=== PATIENT | female | born 1975 | race Caucasian/White ===

== ENCOUNTER 2020-11-15 14:32 | Outpatient (CLI) | payer OTHER, SELFPAY ==
--- NOTE | ~2020-11-15 | MM_ITS ---
EXAMINATION: MM screening elizabeth BI w chay HISTORY: Screening TECHNIQUE: Craniocaudal and mediolateral oblique 3-D tomosynthesis images were obtained and synthetic 2-D images were generated. CAD analysis was submitted and interpreted. COMPARISON: No prior mammogram is available for comparison at this institution. BREAST PARENCHYMAL COMPOSITION: FINDINGS: There is no evidence of suspicious mass, calcification, or architectural distortion to sugg est malignancy in either breast. There has been no suspicious interval change. IMPRESSION: 1. No mammographic evidence of malignancy. 2. Recommend routine screening mammography in one year. Reviewed, dictated and finalized at location A. ESTATE OPERATIONS MANAGER
== END 2020-11-15 14:33 | disposition home or self-care (01) ==
LOC: ANHIMG 14:37
PROVIDERS: PCP Obstetrics & Gynecology; Visit Provider Obstetrics & Gynecology
DX: Z12.31 Encounter for screening mammogram for malignant neoplasm of breast (principal)
CPT/HCPCS: 77063; 77067

== ENCOUNTER 2022-11-14 17:29 | Emergency (ER) | payer OTHER, SELFPAY ==
[2022-11-14] VITALS (12 sets, daily range): BP systolic 103–167; BP diastolic 44–143; PULSE 99–220; RESP 16–27; TEMP 36.4; O2SAT 99–100
--- NOTE | 2022-11-14 17:31 | ECG_ITS ---
Measurements Intervals [place] Rate: 189 P: NE: 0 QRS: 0 QRSD: 88 T: 60 QT: 232 QTc: 412 Interpretive Statements SUPRAVENTRICULAR TACHYCARDIA LEFT VENTRICULAR HYPERTROPHY AND ST-T CHANGE BORDERLINE ST-T WAVE ABNORMALITY- ANTEROLATERAL LEADS BASELINE ARTIFACT- III, V1, V3 ABNORMAL ECG NO PREVIOUS ECG AVAILABLE FOR COMPARISON Electronically Signed On 11-14-2022 18:26:48 MAINFRAME SYSTEMS ENGINEER by Robb Horta D.O.
--- NOTE | 2022-11-14 17:48 | PC.NURSE ---
1731-Pt arrived to room, HR 200, vasovagal maneuver attempted x2 with no change in HR. 1744- Dr. Aditi Quinn at bedside adenosine 6mg given rapid IVP, no change in HR, remaining 200s. 1746- adenosine 12mg rapid IVP, HR decreased to 120 and Sinus tachycardia.
--- NOTE | 2022-11-14 17:53 | ECG_ITS ---
Measurements Intervals [place] Rate: 120 P: 63 FL: 167 QRS: -1 QRSD: 94 T: 75 QT: 292 QTc: 412 Interpretive Statements SINUS TACHYCARDIA LEFT VENTRICULAR HYPERTROPHY AND ST-T CHANGE BASELINE ARTIFACT- I, II, III, AVR, AVL, AVF, V1-V2 ABNORMAL ECG COMPARED TO ECG 11/14/2022 17:41:40 SINUS TACHYCARDIA NOW PRESENT Electronically Signed On 11-14-2022 18:27:21 CEILING CLEANER by Robb Horta D.O.
[2022-11-14] MEDS: ADENOSINE IV SOLN 6 MG/2 ML VIAL 18 MG (17:56)
[2022-11-14] MEDS: SODIUM CHLORIDE 0.9% IV 1,000 ML 999 ML (17:57)
--- NOTE | 2022-11-14 18:18 | ED.GENADULT ---
HPI - General Adult General Chief complaint: Arrhythmia/Palpitations Stated complaint: palpitations Time Seen by Provider: 11/14/22 17:34 History of Present Illness HPI narrative: Old female with history of paroxysmal SVT presenting to the emergency department for evaluation of rapid heart rate since approximately 330 today. Patient states she was bringing in her Hands when she felt her rapid heart rate. Patient states he did feel lightheaded with this but denied any associated chest pain. Patient states she has had follow-up with cardiology for this previously but has never had a Holter monitor. Patient is being worked up for hyperthyroid. Patient states he did have some caffeine today but denies any significant change in her caffeine intake from baseline. Related Data Allergies Allergy/AdvReac Type Severity Reaction Status Date / Time erythromycin base AdvReac Mild NAUSEA/VOMI Verified 11/14/22 20:27 TING Review of Systems Review of Systems: CONSTITUTIONAL: Denies fever, chills, or sweats. EYES: Denies visual changes, redness, or discharge. ENT: Denies rhinorrhea, congestion, sore throat, or otalgia. CARDIOVASCULAR: Rapid heart rate, see HPI RESPIRATORY: Denies cough or dyspnea. GASTROINTESTINAL: Denies abdominal pain, nausea, vomiting, or diarrhea. GENITOURINARY: Denies dysuria or hematuria. SKIN: Denies rash or itching. MUSCULOSKELETAL: Denies back pain, joint pain, or myalgia. NEUROLOGIC: Denies headache, numbness, or weakness. Exam Narrative: APPEARANCE: Well appearing, no pain, no distress, well-nourished. HEAD: normocephalic, atraumatic. EYES: PERRLA/EOMI, conjunctivae clear. NOSE: Normal no drainage NECK: Supple. No adenopathy, no masses. RESPIRATORY: Airway patent, respirations nonlabored. Clear to auscultation bilaterally, no rales, rhonchi, wheezing. CARDIOVASCULAR: Tachycardia, SVT ABDOMINAL: Soft, nontender, nondistended, normal bowel sounds MUSCULOSKELETAL: Moves all extremities. Strength/ROM intact, No edema, No calf tenderness. NEURO: Alert. Cranial nerves II through XII intact. Good gait. Good coordination SKIN: Warm, dry. Normal Color Course Course Emergency Course: Shortly after arrival to the emergency department patient was in a heart rate of 200. Attempted the modified Valsalva x2 with no change in the patient's heart rate. Cardioversion with 6 mg of IV Adenocard was not successful. Patient did convert with 12 mg of IV Adenocard. Patient was also treated with 1 L of normal saline and patient's heart rate did improve. Patient's TSH electrolytes and CBC were within normal limits no significant electrolyte abnormalities seen. On reevaluation patient states he does feel significantly improved. EKG did show supraventricular tachycardia. Patient reports he does have a history of this. Patient was encouraged to continue close follow-up with her primary care physician. All questions concerns were addressed. Patient was requesting discharge to home. Vital Signs Vital signs: Vital Signs Temperature 97.6 F 11/14/22 17:35 Pulse Rate 208 H 11/14/22 17:35 Respiratory Rate 18 11/14/22 17:35 Blood Pressure 167/143 H 11/14/22 17:35 Pulse Oximetry 99 11/14/22 17:35 Oxygen Delivery Room Air 11/14/22 17:35 Temperature 97.6 F 11/14/22 17:35 Pulse Rate 99 11/14/22 19:00 Respiratory Rate 21 H 11/14/22 19:00 Blood Pressure 104/44 L 11/14/22 18:46 Pulse Oximetry 100 11/14/22 18:46 Oxygen Delivery Room Air 11/14/22 17:35 Medical Decision Making Vital Signs Vital Signs: Vital Signs Temperature 97.6 F 11/14/22 17:35 Pulse Rate 208 H 11/14/22 17:35 Respiratory Rate 18 11/14/22 17:35 Blood Pressure 167/143 H 11/14/22 17:35 Pulse Oximetry 99 11/14/22 17:35 Oxygen Delivery Room Air 11/14/22 17:35 Temperature 97.6 F 11/14/22 17:35 Pulse Rate 99 11/14/22 19:00 Respiratory Rate 21 H 11/14/22 19:00 Blood Pressure 104/44 L 11/14/22 18:
[2022-11-14 19:09] LABS: Basophils Absolute Auto 0.1 K/mm3 (0.0-0.1); Basophils Percent Auto 0.5 % (0.2-1.2); Eosinophils Absolute Auto 0.1 K/mm3 (0-0.3); Eosinophils Percent Auto 0.7 % (0-4.4); Hematocrit 43.1 % (37.0-47.0); Hemoglobin 13.1 g/dL (12.0-15.0); Immature Granulocyte Absolute 0.03 K/mm3 (0.00-0.031); Immature Granulocyte Percent A 0.3 % (0-0.5); Lymphocytes Absolute Auto 3.31 K/mm3 (0.9-3.2); Lymphocytes Percent Auto 33.9 % (18.3-44.2); Mean Corpuscular HGB Conc 30.4 g/dl (32-36); Mean Corpuscular Hemoglobin 28.1 pg (26-34); Mean Corpuscular Volume 92.3 fl (80-100); Mean Platelet Volume 9.2 fl (7.4-10.4); Monocytes Absolute Auto 0.6 K/mm3 (0.1-0.6); Monocytes Percent Auto 6.2 % (2.6-8.5); Neutrophils Absolute Auto 5.7 K/mm3 (1.3-6.7); Neutrophils Percent Auto 58.4 % (45.5-73.1); Platelet Count Result 316 k/mm3 (150-375); Red Blood Count 4.67 M/mm3 (4.2-5.4); Red Cell Distribution Width 14.7 % (11.5-14.5); White Blood Count 9.8 K/mm3 (4.5-10.0)
[2022-11-14 19:16] LABS: Alanine Aminotransferase 17 U/L (6-35); Albumin Level 3.6 g/dL (3.5-5.1); Alkaline Phosphatase 74 U/L (38-126); Anion Gap 9 mmol/L (8-16); Aspartate Amino Transferase 55 U/L (14-36); Bilirubin,Total 0.4 mg/dL (0.2-1.3); Blood Urea Nitrogen 16 mg/dL (7-17); Calcium 7.7 mg/dL (8.4-10.2); Carbon Dioxide 20 mmol/L (22-30); Chloride 109 mmol/L (98-107); Estimated CRCL calculation 88 ml/min; Estimated Glomerular Filt Rate > 60; Glucose 96 mg/dL (65-110); Potassium 3.9 mmol/L (3.4-5.0); Sodium 138 mmol/L (137-145)
[2022-11-14] MEDS: SODIUM CHLORIDE 0.9% IV 1,000 ML 999 ML IV CONT (19:25)
== END 2022-11-14 19:35 | disposition home or self-care (01) ==
PROVIDERS: Emergency Provider Emergency Medicine
DX: I47.1 Supraventricular tachycardia (principal); I51.7 Cardiomegaly; R94.31 Abnormal electrocardiogram [ECG] [EKG]
CPT/HCPCS: 36415; 80053; 84443; 85025; 93005; 96361; 96374; 99284; J0153; J7030